=== PATIENT | female | born 1980 | race Caucasian/White ===

== ENCOUNTER 2017-05-09 20:03 | Emergency (ER) | payer OTHER ==
[~2017-05-09] VITALS: Ht 165.1 cm; Wt 54.9 kg
[2017-05-09] MEDS ORDERED: SODIUM CHLORIDE FLUSH 10ML SYR IVF ONE (20:30)
[2017-05-09] MEDS ORDERED: SODIUM CHLORIDE 0.9% 1,000ML IVBOLUS ONE (20:30)
[2017-05-09] MEDS ORDERED: ONDANSETRON 2MG/ML, 2ML IVPush ONE (20:30)
[2017-05-09] MEDS ORDERED: ONDANSETRON 2MG/ML, 2ML ONE (20:32)
[2017-05-09] MEDS ORDERED: METOCLOPRAMIDE 5 MG/ML, 2ML ONE (20:46)
[2017-05-09] MEDS ORDERED: MORPHINE SULFATE 4 MG/ML, 1ML ONE (20:46)
[2017-05-09] MEDS ORDERED: METOCLOPRAMIDE 5 MG/ML, 2ML IVPush ONE (21:00)
[2017-05-09] MEDS ORDERED: morphine SULFATE 10 MG/ML, 1ML IVPush ONE (21:00)
[2017-05-09] MEDS ORDERED: BELI120V IV (21:01)
[2017-05-09] MEDS ORDERED: HYDR-3341 PO (21:01)
[2017-05-09] MEDS ORDERED: PRED-402 PO (21:01)
[2017-05-09 21:25] LABS: ASPARTATE AMINO TRANSFERASE 78 U/L (15-37); BLOOD UREA NITROGEN 9 mg/dL (7-18)
[2017-05-09 22:04] VITALS: BP 96/56
== END 2017-05-09 23:07 | disposition home or self-care (01) ==
LOC: ED 23:01
DX: R10.13 Epigastric pain (principal); R79.89 Other specified abnormal findings of blood chemistry
CPT/HCPCS: 36415; 80053; 83690; 84703; 85025; 96374; 96375; 99284; J2270; J2765